=== PATIENT | male | born 1950 | race Asian ===

== ENCOUNTER 2023-02-10 16:06 | Emergency (ER) | payer MEDICARE, OTHER ==
[~2023-02-10] VITALS: Ht 152.4 cm; Wt 63.5 kg
[2023-02-10 16:09] VITALS: O2SAT 98
[2023-02-10] MEDS ORDERED: DIATR MEGLU/DIATRIZOATE SODIUM 30 ML BOTTLE ONE (16:10)
== END 2023-02-10 17:08 ==
LOC: ER 16:09
DX: Z43.1 Encounter for attention to gastrostomy (principal); Z91.040 Latex allergy status
CPT/HCPCS: 43762; 74018; A4606; A4663; Q9963